=== PATIENT | female | born 1940 | race Caucasian/White ===

== ENCOUNTER → 2016-03-22 | Outpatient (CLI) | payer MEDICARE, OTHER | LOC: YCFC.O 10:52 | PROVIDERS: ATTEND Nurse Practitioner Family | DX: R30.0 Dysuria (principal); R30.9 Painful micturition, unspecified ==

== ENCOUNTER 2016-04-15 10:17 | Emergency (ER) | payer MEDICARE, OTHER ==
[2016-04-15 10:32] VITALS: BP 159/78; O2SAT 99
--- NOTE | 2016-04-15 10:50 | ED.PDOC ---
History of Present Illness - General Chief Complaint: Upper Extremity Injury Stated Complaint: right hand and wrist pain Time Seen by Provider: 04/15/16 10:47 Source: patient Exam Limitations: no limitations - History of Present Illness Initial Comments: Ms. Buffy Butt 75 y/o female stated she lifted her crock pot this am and felt something pop on her right thumb and getting achy,as well as pain on movement of her thumb. Occurred: this morning Pain - Upper Extremity: moderate: Hand, left Method of Injury: other - pulled thumb right Improving Factors: rest Worsening Factors: movement Allergies/Adverse Reactions: Allergies NO KNOWN ALLERGY Allergy (Unverified 04/23/12 11:00) Home Medications: Ambulatory Orders Dabigatran Etexilate Mesylate [Pradaxa] 150 mg PO BID 05/13/12 Lisinopril [Prinivil] 20 mg PO DAILY 05/13/12 Propafenone [Rythmol] 150 mg PO BID 05/13/12 Clonazepam 0.5 mg PO TID 04/15/16 Diltiazem HCl Coated Beads [Cartia Xt] 180 mg PO DAILY 04/15/16 Tramadol HCl [Ultram] 50 mg PO PRN 04/15/16 Review of Systems - Review of Systems Constitutional: States: no symptoms reported EENTM: States: no symptoms reported Respiratory: States: no symptoms reported Cardiology: States: no symptoms reported Gastrointestinal/Abdominal: States: no symptoms reported Genitourinary: States: no symptoms reported Musculoskeletal: States: joint pain - right tumb Skin: States: no symptoms reported Neurological: States: no symptoms reported Endocrine: States: no symptoms reported Hematologic/Lymphatic: States: no symptoms reported Past Medical History (General) - Patient Medical History Hx Seizures: No Hx Stroke: Yes - 1 week ago Hx Asthma: No Hx of COPD: No Hx Cardiac Disorders: Yes - a fib Hx Congestive Heart Failure: No Hx Pacemaker: Yes Hx Hypertension: Yes Hx Diabetes: No Hx Cancer: Yes - Colon Hx MRSA: No Hx Other PMH: Yes - Rheumatoid arthritis Surgical History: pacemaker, other - colon,hysterectomy - Vaccination History Hx Influenza Vaccination: No Hx Pneumococcal Vaccination: Yes - Social History Hx Tobacco Use: No Hx Alcohol Use: No Hx Substance Use: No Hx Physical Abuse: No Hx Emotional Abuse: No - Activities of Daily Living Patient Lives Alone: No - family Grooming Ability: Independent Eating (Feeding) Ability: Independent Toileting Ability: Independent Family Medical History - Family History Mother Family History: Unknown Hx Family Hypertension: Yes Hx Cardiac Disease: Yes Hx Family Cancer: Yes - pancreas,lung Physical Exam - Physical Exam General Appearance: Alert, Comfortable, No apparent distress Eyes, Ears, Nose, Throat Exam: PERRL/EOMI, normal ENT inspection, TMs normal Neck: non-tender, full range of motion, supple, normal inspection Cardiovascular/Respiratory: regular rate, rhythm, no M/R/G, normal peripheral pulses, no JVD, normal breath sounds, no respiratory distress Abdominal Exam: non-tender, no organomegaly, no hernia Back Exam: normal inspection, no CVA tenderness, no vertebral tenderness Shoulder Exam: normal inspection, non-tender, no evidence of injury Elbow/Forearm Exam: normal inspection, non-tender, no evidence of injury Wrist Exam: normal inspection, non-tender, no evidence of injury Hand Exam: no evidence of injury, bone tenderness - right thumb, deformity - from RA ip joints both hands, limited ROM - right mcp joint thumb Progress - EKG/XRAY/CT XRAY: hand - right hand no fracture Departure - Departure Clinical Impression: Sprain of right thumb Qualifiers: Encounter type: initial encounter Qualifier Code: (S63.601A) Unspecified sprain of right thumb, initial encounter Time of Disposition: 11:26 Disposition: Discharge to Home or Self Care Condition: Good Departure Forms: ED Discharge - Pt. Copy, Patient Portal Self Enrollment Instructions: DI for Finger Sprain Referrals: [Primary Care Provider] - 1-2 Weeks Home Medications: Ambulatory Orders Dabigatran Etexilate Mesylate [Pradaxa] 150 mg PO BID 05/13/12 Lisinopril [Prinivil] 20 mg PO DAILY 05/13/12 Propafenone [Rythmol] 150 mg PO BID 05/13/12 Clonazepam 0.5 mg PO TID 04/15/16 Diltiazem HCl Coated Beads [Cartia Xt] 180 mg PO DAILY 04/15/16 Tramadol HCl [Ultram] 50 mg PO PRN 04/15/16 Additional Instructions: FOLLOW UP WITH PRIMARY MD IN ONE WEEK
--- NOTE | 2016-04-15 11:18 | RAD ---
EXAM DESCRIPTION: Hand,Right 3 Views CLINICAL HISTORY: 75 yearsFemale, pain COMPARISON: None. IMPRESSION: Osteopenia noted. Degenerative change of base of thumb and within the DIP joints. This is most pronounced within the second digit. No fracture noted on today's study. 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 Electronically signed by: Blayne Fleming MD 04/15/2016 11:17 AM [facility]
[2016-04-15 11:53] VITALS: TEMP 98.1
== END 2016-04-15 11:31 | disposition home or self-care (01) ==
LOC: ER 10:17
DX: S63.601A Unspecified sprain of right thumb, initial encounter (principal); I48.91 Unspecified atrial fibrillation; M06.9 Rheumatoid arthritis, unspecified; I10 Essential (primary) hypertension; Z85.038 Personal history of other malignant neoplasm of large intestine; Z86.73 Personal history of transient ischemic attack (TIA), and cerebral infarction without residual deficits; Z79.899 Other long term (current) drug therapy; Z95.0 Presence of cardiac pacemaker; X50.9XXA Other and unspecified overexertion or strenuous movements or postures, initial encounter

== ENCOUNTER → 2016-09-30 | Outpatient (CLI) | payer MEDICARE, OTHER | END | disposition home or self-care (01) | LOC: YCFC.O 14:02 | PROVIDERS: ATTEND Nurse Practitioner Family | DX: R30.0 Dysuria (principal) ==

== ENCOUNTER → 2016-11-23 | Outpatient (CLI) | payer MEDICARE, OTHER | END | disposition home or self-care (01) | LOC: LAB.O 12:47 | PROVIDERS: ATTEND Internal Medicine Cardiovascular Disease | DX: I48.91 Unspecified atrial fibrillation (principal) ==

== ENCOUNTER → 2017-03-08 | Outpatient (CLI) | payer MEDICARE, OTHER | END | disposition home or self-care (01) | LOC: LAB.O 10:38 | PROVIDERS: ATTEND Internal Medicine Cardiovascular Disease | DX: I25.10 Atherosclerotic heart disease of native coronary artery without angina pectoris (principal) ==

== ENCOUNTER → 2017-08-10 | Outpatient (CLI) | payer MEDICARE, OTHER | LOC: LAB.O 07:59 | PROVIDERS: ATTEND Internal Medicine Cardiovascular Disease | DX: E78.5 Hyperlipidemia, unspecified (principal) ==

== ENCOUNTER 2017-12-31 11:33 | Emergency (ER) | payer MEDICARE, OTHER ==
[2017-12-31] MEDS ORDERED: MORPHINE SULFATE INJ 10 MG/ML VIAL IV ONE (11:47)
[2017-12-31] MEDS ORDERED: PROMETHAZINE HCL INJ 12.5 MG in SODIUM CHLORIDE 0.9% 50ML 50 ML IVPB ONE (11:48)
[2017-12-31] MEDS ORDERED: PROMETHAZINE HCL INJ 25 MG/ML VIAL ONE (11:52)
[2017-12-31] MEDS ORDERED: SODIUM CHLORIDE 0.9% 50ML 50 ML ONE (11:52)
--- NOTE | 2017-12-31 11:52 | ED.PDOC ---
History of Present Illness - General Chief Complaint: Trauma Stated Complaint: S/P fall,right arm pain Time Seen by Provider: 12/31/17 11:46 Source: patient Exam Limitations: no limitations - History of Present Illness Initial Comments: Pt tripped and fell onto R arm. Has pain in elbow and wrist. Denies other injuries Timing/Duration: 1/2 hour Severity: severe Improving Factors: immobilization Worsening Factors: movement Associated Symptoms: denies symptoms Allergies/Adverse Reactions: Allergies NO KNOWN ALLERGY Allergy (Unverified 04/23/12 11:00) Home Medications: Ambulatory Orders Dabigatran Etexilate Mesylate [Pradaxa] 150 mg PO BID 05/13/12 Lisinopril [Prinivil] 20 mg PO DAILY 05/13/12 Propafenone [Rythmol] 150 mg PO TID 05/13/12 Clonazepam 0.5 mg PO TID 04/15/16 Diltiazem HCl Coated Beads [Cartia Xt] 120 mg PO DAILY 04/15/16 Tramadol HCl [Ultram] 50 mg PO PRN 04/15/16 Furosemide [Lasix] 20 mg PO DAILY 12/31/17 Metoprolol Tartrate 25 mg PO BID 12/31/17 Potassium Chloride [Micro-K] 10 meq PO DAILY 12/31/17 Tramadol HCl 50 mg PO Q4HR PRN #20 tab 12/31/17 Review of Systems - Review of Systems Constitutional: States: no symptoms reported EENTM: States: no symptoms reported Respiratory: States: no symptoms reported Cardiology: States: no symptoms reported Gastrointestinal/Abdominal: States: no symptoms reported Musculoskeletal: States: joint pain, joint swelling - To R elbow Skin: States: no symptoms reported Neurological: States: no symptoms reported Endocrine: States: no symptoms reported Past Medical History (General) - Patient Medical History Hx Seizures: No Hx Stroke: Yes - 1 week ago Hx Asthma: No Hx of COPD: No Hx Cardiac Disorders: Yes - a fib Hx Congestive Heart Failure: No Hx Pacemaker: Yes Hx Hypertension: Yes Hx Diabetes: No Hx Cancer: Yes - Colon Hx MRSA: No - Vaccination History Hx Influenza Vaccination: No Hx Pneumococcal Vaccination: Yes - Social History Hx Tobacco Use: No Hx Alcohol Use: No Hx Substance Use: No Hx Physical Abuse: No Hx Emotional Abuse: No Family Medical History - Family History Mother Family History: Unknown Hx Family Hypertension: Yes Hx Cardiac Disease: Yes Hx Family Cancer: Yes - pancreas,lung Physical Exam - Physical Exam General Appearance: Obvious distress Eye Exam: bilateral normal Ears, Nose, Throat: hearing grossly normal Extremity: other - Deformity at R elbow with decreased ROM, no skin wounds. R wrist mildly tender without swelling or deformity. Hand is negative Neurologic: alert, normal mood/affect, oriented x 3 Skin Exam: normal color, warm/dry Procedures - Splinting Right Arm Hand-Made Type: orthoglass Splint: posterior long arm Pre-Proc Neuro Vasc Exam: normal Post-Proc Neuro Vasc Exam: normal - Joint Reduction elbow Reduction Attempts: 1 - 50 mg Propofol iv with light sedation Pre-Procedure NV Exam: Yes - normal Post Joint Reduction Film: joint reduced - fx radial head still displaced Departure - Departure Clinical Impression: Elbow dislocation Qualifiers: Encounter type: initial encounter Laterality: right Qualified Code(s): S53.104A - Unspecified dislocation of right ulnohumeral joint, initial encounter Fracture, radius, head Qualifiers: Encounter type: initial encounter Fracture type: closed Fracture alignment: displaced Laterality: right Qualified Code(s): S52.121A - Displaced fracture of head of right radius, initial encounter for closed fracture Disposition: Discharge to Home or Self Care Departure Forms: ED Discharge - Pt. Copy, Patient Portal Self Enrollment Instructions: DI for Trauma Referrals: Devon Peterson MD [Active Staff] - 1-2 Weeks Prescriptions: Tramadol HCl 50 mg PO Q4HR PRN #20 tab PRN Reason: Moderate To Severe Pain Home Medications: Ambulatory Orders Dabigatran Etexilate Mesylate [Pradaxa] 150 mg PO BID 05/13/12 Lisinopril [Prinivil] 20 mg PO DAILY 05/13/12 Propafenone [Rythmol] 150 mg PO TID 05/13/12 Clonazepam 0.5 mg PO TID 04/15/16 Diltiazem HCl Coated Beads [Cartia Xt] 120 mg PO DAILY 04/15/16 Tramadol HCl [Ultram] 50 mg PO PRN 04/15/16 Furosemide [Lasix] 20 mg PO DAILY 12/31/17 Metoprolol Tartrate 25 mg PO BID 12/31/17 Potassium Chloride [Micro-K] 10 meq PO DAILY 12/31/17 Tramadol HCl 50 mg PO Q4HR PRN #20 tab 12/31/17
--- NOTE | 2017-12-31 12:27 | RAD ---
EXAM DESCRIPTION: Elbow,Right 2 Views CLINICAL HISTORY: 77 years Female, fall COMPARISON: None. FINDINGS: Two views of the right elbow show posterior dislocation of the right elbow joint. There is a right radial head fracture with significant displacement. The radiocapitellar joint is suboptimally visualized and may also be dislocated. No distal humeral or proximal ulnar fracture is identified. A right elbow hemarthrosis is present. IMPRESSION: Right elbow fracture/dislocation as detailed above. If relevant, CT could be performed for more detailed evaluation. Electronically signed by: Gunner Patricio MD 12/31/2017 12:25 PM [facility]
--- NOTE | 2017-12-31 12:28 | RAD ---
EXAM DESCRIPTION: Wrist,Right 2 Views CLINICAL HISTORY: 77 years Female, fall COMPARISON: None. FINDINGS: Two views of the right wrist show no acute fracture or malalignment. Chondrocalcinosis involves the triangular fibrocartilage complex. There are advanced degenerative changes involving the first CMC joint. No radiopaque foreign body or soft tissue gas. IMPRESSION: Degenerative changes without acute right wrist abnormality. Electronically signed by: Gunner Patricio MD 12/31/2017 12:26 PM [facility]
[2017-12-31] MEDS ORDERED: PROPOFOL 200 MG/20 ML VIAL IV ONE (12:32)
[2017-12-31] MEDS ORDERED: SODIUM CHLORIDE 0.9% 1000ML 1,000 ML ONE (12:33)
[2017-12-31] MEDS ORDERED: SODIUM CHLORIDE 0.9% 1000ML 1,000 ML IVS ONE (12:34)
[2017-12-31 12:42] VITALS: O2SAT 96
--- NOTE | 2017-12-31 13:52 | RAD ---
PROCEDURE: XR Right Elbow Complete, 3 Views CLINICAL INDICATION: The patient is 77 years old and is Female; post reduction TECHNIQUE: Frontal, lateral and oblique views of the right elbow. COMPARISON: Prior study from earlier today. FINDINGS: BONES/JOINTS: Previously identified complete posterior dislocation has been reduced. More clearly evident is a displaced mildly comminuted radial head fracture. There is an elbow effusion. Coronoid process is intact. Olecranon is intact. SOFT TISSUES: Unremarkable.No radiopaque foreign body. No significant soft tissue swelling noted. IMPRESSION: 1. Previously identified complete posterior dislocation has been reduced. 2. More clearly evident is a displaced mildly comminuted radial head fracture. Intact coronoid process and olecranon process. 3. There is an elbow effusion. This may be a hemarthrosis. Electronically signed by: Oscar Bishop MD 12/31/2017 1:51 PM [facility]
[2017-12-31 14:49] VITALS: BP 135/54; TEMP 97.2
== END 2017-12-31 14:19 | disposition home or self-care (01) ==
LOC: ER 11:33
DX: S53.104A Unspecified dislocation of right ulnohumeral joint, initial encounter (principal); M25.531 Pain in right wrist; I48.91 Unspecified atrial fibrillation; I10 Essential (primary) hypertension; Z95.0 Presence of cardiac pacemaker; Z86.73 Personal history of transient ischemic attack (TIA), and cerebral infarction without residual deficits; Z85.038 Personal history of other malignant neoplasm of large intestine; W01.0XXA Fall on same level from slipping, tripping and stumbling without subsequent striking against object, initial encounter; Y92.9 Unspecified place or not applicable; Z79.899 Other long term (current) drug therapy
CPT/HCPCS: 73070; 73100; 94770; A4216; J2270; J2550; J3490; J7030

== ENCOUNTER → 2018-01-04 | Outpatient (CLI) | payer MEDICARE, OTHER ==
--- NOTE | 2018-01-08 13:39 | CT ---
CT right elbow without contrast INDICATION: Radial head fracture status post dislocation TECHNIQUE: Helical CT images through the right elbow without contrast with multiplanar reformats This exam was performed according to our departmental dose-optimization program, which includes automated exposure control, adjustment of the mA and/or kV according to patient size and/or use of iterative reconstruction technique. FINDINGS: The images are not laterality labeled. However, this appears to be the right side. There is an impacted displaced comminuted fracture of the radial head. An anterior fragment is displaced distally. Multiple peripheral impacted fragments are also noted. There is a large displaced fragment posterior to the capitellum which appears to be a majority of the articular surface. This fragment measures up to nearly 2 cm in diameter. Minimal background osteoarthrosis of the elbow. Moderate elbow effusion/hemarthrosis. Mild diastasis of the ulnar side of the joint. IMPRESSION: Large displaced articular surface fragment from the radial head located posterior to the capitellum with additional smaller impacted fragments distally along the proximal radius Reduced dislocation otherwise Prominent ecchymosis along the olecranon and proximal ulna and moderate elbow effusion/hemarthrosis Electronically signed by: Kumar Smith MD 01/08/2018 1:38 PM [facility]
== END ==
LOC: CT 08:35
PROVIDERS: ATTEND Orthopaedic Surgery
DX: S52.121A Displaced fracture of head of right radius, initial encounter for closed fracture (principal)

== ENCOUNTER 2018-01-24 08:34 | Observation (INO) | payer MEDICARE, OTHER ==
[2018-01-24] MEDS ORDERED: MORPHINE SULFATE INJ 10 MG/ML VIAL IM ONE ×2 (08:50→10:00)
--- NOTE | 2018-01-24 09:07 | RAD ---
EXAM DESCRIPTION: Humerus,Left CLINICAL HISTORY: 77 years Female, LUE PAIN, SWELLING COMPARISON: None. TECHNIQUE: 1 views of the left humerus were obtained. FINDINGS: The visualized bones appear osteopenic. There is an oblique fracture through the distal shaft of the humerus with medial displacement of the distal fracture fragment. Associated soft tissue swelling is noted. IMPRESSION: Oblique fracture of the distal shaft the humerus with medial displacement of the distal fracture fragment. Electronically signed by: Daria Valladares MD 01/24/2018 9:05 AM [facility]
--- NOTE | 2018-01-24 09:13 | ED.PDOC ---
History of Present Illness - General Chief Complaint: Upper Extremity Injury Stated Complaint: L arm pain Time Seen by Provider: 01/24/18 08:48 Source: patient Exam Limitations: no limitations - History of Present Illness Initial Comments: PT PRESENTS TO THE ED WITH COMPLAINT OF LEFT ARM PAIN. PT STATES THAT SHE WAS POURING COFFEE WHEN SHE FELT LIKE THE COFFEE POT HANDLE BROKE AND HIT HER ARM. PT REPORTS THAT SHE HAS BEEN USING HER ARM ALOT MORE RECENTLY SINCE SHE HAD SURGERY ON HER RIGHT ARM AND STATES THAT IT BEGAN TO HURT LAST NIGHT. Occurred: just prior to arrival Pain - Upper Extremity: severe: Upper arm, left Method of Injury: direct blow Improving Factors: immobilization Worsening Factors: movement Allergies/Adverse Reactions: Allergies NO KNOWN ALLERGY Allergy (Unverified 01/24/18 08:58) Home Medications: Ambulatory Orders Dabigatran Etexilate Mesylate [Pradaxa] 150 mg PO BID 05/13/12 Lisinopril [Prinivil] 20 mg PO DAILY 05/13/12 Propafenone [Rythmol] 150 mg PO TID 05/13/12 Clonazepam 0.5 mg PO TID 04/15/16 Diltiazem HCl Coated Beads [Cartia Xt] 120 mg PO DAILY 04/15/16 Tramadol HCl [Ultram] 50 mg PO PRN 04/15/16 Furosemide [Lasix] 20 mg PO DAILY 12/31/17 Metoprolol Tartrate 25 mg PO BID 12/31/17 Potassium Chloride [Micro-K] 10 meq PO DAILY 12/31/17 Tramadol HCl 50 mg PO Q4HR PRN #20 tab 12/31/17 Review of Systems - Review of Systems Constitutional: Denies: chills, fever Respiratory: Denies: cough, short of breath Cardiology: Denies: chest pain, palpitations Gastrointestinal/Abdominal: Denies: nausea, vomiting Musculoskeletal: Denies: back pain, muscle pain Skin: Denies: dryness, lesions Neurological: Denies: headache, numbness Past Medical History (General) - Patient Medical History Hx Seizures: No Hx Stroke: Yes - 1 week ago Hx Asthma: No Hx of COPD: No Hx Cardiac Disorders: Yes - a fib Hx Congestive Heart Failure: No Hx Pacemaker: Yes Hx Hypertension: Yes Hx Diabetes: No Hx Cancer: Yes - Colon Hx MRSA: No - Vaccination History Hx Influenza Vaccination: No Hx Pneumococcal Vaccination: Yes - Social History Hx Tobacco Use: No Hx Alcohol Use: No Hx Substance Use: No Hx Physical Abuse: No Hx Emotional Abuse: No Family Medical History - Family History Mother Family History: Unknown Hx Family Hypertension: Yes Hx Cardiac Disease: Yes Hx Family Cancer: Yes - pancreas,lung Physical Exam - Physical Exam General Appearance: Alert, Obvious distress, Well Developed, Well Groomed, Well Hydrated Eyes, Ears, Nose, Throat Exam: normal ENT inspection Neck: normal inspection Back Exam: normal inspection Shoulder Exam: normal inspection, non-tender, no evidence of injury, swelling - AND TENDERNESS TO PALPATION OF THE LEFT DISTAL HUMERUS REGION. LIMITED RANGE OF MOTION DUE TO PAIN. Elbow/Forearm Exam: normal inspection, non-tender, no evidence of injury Wrist Exam: normal inspection, non-tender, no evidence of injury Hand Exam: normal inspection, non-tender, no evidence of injury Mental Status: alert, oriented x 3 Skin Exam: normal color, warm/dry Progress - Progress Progress: 01/24/18 0900 XRAY FINDINGS DISCUSSED. DAUGHTER FEELS THOUGH SHE WILL BE ABLE TO CARE FOR HER AT HOME. 01/24/18 10:38 SPLINT PLACED BY NURSING STAFF. GOOD SENSATION AND COLOR DISTALLY AFTER SPLINT PLACEMENT. DAUGHTER NO LONGER FEELS LIKE SHE WILL BE ABLE TO CARE FOR HER AT HOME DUE TO PTS PAIN LEVEL. REQUESTING ADMISSION FOR PAIN CONTROL. - EKG/XRAY/CT XRAY: HUMERUS: DISPLACED FX OF DISTAL HUMERUS - Consult/PCP Time Called: 09:25 - CASE DISCUSSED, RECOMMENDS POSTERIOR SPLINT, OUTPT FOLLOWUP Consult/PCP: DR. LUO - Additional EKG/XRAY/Consults Time Called: 11:25 Consult/PCP: DR. LUO Reason/Comments: RECOMMENDS ADMISSION HERE FOR PAIN CONTROL Departure - Departure Clinical Impression: Humerus distal fracture, Intractable pain Time of Disposition: 10:39 Disposition: Admit Patient Condition: Fair Departure Forms: ED Discharge - Pt. Copy, Patient Portal Self Enrollment Instructions: DI for Humeral Fracture Diet: resume usual diet Home Medications: Ambulatory Orders Dabigatran Etexilate Mesylate [Pradaxa] 150 mg PO BID 05/13/12 Lisinopril [Prinivil] 20 mg PO DAILY 05/13/12 Propafenone [Rythmol] 150 mg PO TID 05/13/12 Clonazepam 0.5 mg PO TID 04/15/16 Diltiazem HCl Coated Beads [Cartia Xt] 120 mg PO DAILY 04/15/16 Tramadol HCl [Ultram] 50 mg PO PRN 04/15/16 Furosemide [Lasix] 20 mg PO DAILY 12/31/17 Metoprolol Tartrate 25 mg PO BID 12/31/17 Potassium Chloride [Micro-K] 10 meq PO DAILY 12/31/17 Tramadol HCl 50 mg PO Q4HR PRN #20 tab 12/31/17 Additional Instructions: FOLLOW UP WITH DR. LUO. CALL OFFICE FOR APPOINTMENT Decision To Admit - Decistion To Admit Decision to Admit Reason: Admit from ER Decision to Admit Date: 01/24/18 Decision to Admit Time: 11:58 - CASE DISCUSSED WITH [place] RAMIRES NP WHO AGREES TO ADMIT
--- NOTE | 2018-01-24 10:09 | CT ---
EXAM DESCRIPTION: Upper Extremity CLINICAL HISTORY: 77 years Female, LUE FX, R/O PATHOLOGIC FX COMPARISON: Radiograph performed on the same day. TECHNIQUE: Contiguous axial images through the left humerus were obtained without intravenous contrast administration. Sagittal, coronal and 3-D reconstructions were reviewed. This exam was performed according to our departmental dose-optimization program, which includes automated exposure control, adjustment of the mA and/or kV according to patient size and/or use of iterative reconstruction technique. FINDINGS: Again identified is a slightly comminuted obliquely oriented fracture of the distal shaft of the humerus. There is lateral angulation of the proximal fracture fragment and medial displacement of the distal fracture fragment. Approximately 2 cm overriding of the fracture fragments is noted. No definite lytic or blastic lesion is identified. No evidence of cortical erosion or disruption or soft tissue mass, to suggest underlying malignancy. There is surrounding soft tissue swelling and hemorrhage. Remainder of the visualized bones appear normal. IMPRESSION: Slightly comminuted, obliquely oriented fracture of the distal shaft of the humerus with approximately 2 cm overriding of the fracture fragments. No evidence of lytic or blastic lesion. Electronically signed by: Daria Valladares MD 01/24/2018 10:08 AM [facility]
[2018-01-24] MEDS ORDERED: SODIUM CHLORIDE 0.9% (FLUSH) 10 ML SYG IV PRN (11:23)
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
[2018-01-24] MEDS ORDERED: IV SET AND CAP CHANGE INJ INJ SCH (12:30)
[2018-01-24] MEDS: MORPHINE SULFATE INJ 10 MG/ML VIAL IV PRN ×5 (12:51→22:12)
[2018-01-24] MEDS ORDERED: ONDANSETRON 4 MG TAB PO PRN (13:39)
--- NOTE | 2018-01-24 16:45 | RAD ---
EXAM DESCRIPTION: Humerus,Left CLINICAL HISTORY: 77 years Female, sudden pain COMPARISON: Earlier same day FINDINGS: Left humerus 2 views Oblique fracture through the distal humeral diaphysis with increased displacement/angulation compared to prior. Soft tissue swelling. Electronically signed by: Ryan Bond MD 01/24/2018 4:43 PM [facility]
[2018-01-24] MEDS ORDERED: OMEPRAZOLE CAP 20 MG CAP ONE (19:58)
[2018-01-24] MEDS: DABIGATRAN ETEXILATE 75 MG CAP PO SCH (20:40)
[2018-01-24] MEDS: PROPAFENONE 150 MG TAB PO SCH (20:40)
[2018-01-24] MEDS: SODIUM CHLORIDE 0.9% (FLUSH) 10 ML SYG IV PRN (20:41)
[2018-01-25] MEDS: MORPHINE SULFATE INJ 10 MG/ML VIAL IV PRN ×4 (01:06→12:52)
[2018-01-25] MEDS: OMEPRAZOLE CAP 20 MG CAP PO SCH (06:06)
[2018-01-25] MEDS ORDERED: cefTRIAXone SODIUM 1 GM VIAL ONE ×2 (07:26→20:10)
[2018-01-25] MEDS ORDERED: SODIUM CHL 0.9% 50ML MIN-BAG+ 50 ML IVPB ONE ×2 (07:27→20:10)
[2018-01-25] MEDS ORDERED: SODIUM CHLORIDE 0.9% 50ML 0 ML ONE (07:27)
[2018-01-25] MEDS: cefTRIAXone SODIUM 1 GM in SODIUM CHL 0.9% 50ML MIN-BAG+ 50 ML IVPB SCH (07:39)
[2018-01-25] MEDS: SODIUM CHLORIDE 0.9% (FLUSH) 10 ML SYG IV PRN ×2 (07:41→20:34)
[2018-01-25] MEDS: PROPAFENONE 150 MG TAB PO SCH ×2 (08:57→20:34)
[2018-01-25] MEDS: LISINOPRIL 10 MG TAB PO SCH (08:57)
[2018-01-25] MEDS: diltiaZEM HCL CD 180 MG CAP PO SCH (08:57)
[2018-01-25] MEDS ORDERED: HYDROcodone 5MG/APAP 325MG 1 EA TAB PO PRN (09:30)
[2018-01-25] MEDS ORDERED: HYDROcodone 5MG/APAP 325MG 1 EA TAB ONE (09:36)
[2018-01-25] MEDS: DABIGATRAN ETEXILATE 75 MG CAP PO SCH ×2 (09:38→20:34)
[2018-01-25] MEDS: ACETAMINOPHEN W/COD #3 TAB 1 EA TAB PO PRN ×3 (10:12→18:59)
--- NOTE | 2018-01-25 16:22 | PN ---
DATE: 01/25/18 SUPERVISING PHYSICIAN: Hitesh Fishman M.D. SUBJECTIVE: The patient is still requiring IV pain medicine in the form of morphine, but she is working to hopefully be able to transition to p.o. medication today. She is at a significant disadvantage given that she has 2 fractured arms now. I discussed with her that we would get Physical Therapy to work with her and see how she could do at least going from the bed to a chair and the bed to chair, toilet in efforts to get her home as soon as possible with anticipation of hopefully tomorrow. She has been afebrile. She remains alert. OBJECTIVE: VITAL SIGNS: Temperature 98.4, pulse 79, blood pressure 133/77, respirations 17, satting 96% on room air. I's and O's show a negative balance of 780 with 420 in, 1200 out. Weight is 88.2 kg. CHEST: Lungs were clear to auscultation. HEART: Regular rate and rhythm. ABDOMEN: Obese but soft, non- tender. Positive bowel sounds. EXTREMITIES: Both upper extremities are in splints with both having intact sensation. SKIN: [place] with good capillary refill. Lower extremities are without any clubbing, cyanosis or edema. NEUROLOGIC: She is alert and oriented times three. LABORATORY: No laboratory were repeated today or radiology. ASSESSMENT: 1. Acute left arm fracture status post same level fall with splint being placed in the Emergency Room with the patient continuing to have requirement for more aggressive pain management. 2. Acute pain secondary to #1 requiring IV and oral medication. 3. History of hypertension and congestive heart failure with the patient showing to be without any exacerbation and controlled blood pressure. PLAN: Will continue with pain management with stair stepping her off morphine onto the Tramadol or Tylenol #3. She is unable to tolerate [place] and Fentanyl. The plan again is to have surgical intervention next week in [facility] with her orthopedist. Will get a physical therapy evaluation today to help reassure the patient that she can function at home and encourage her to ask for pain management and utilize p.o. medications as possible with anticipation of discharging tomorrow. Until she can transition back to outpatient management will continue to monitor and treat as needed. #[id number] [facility]
[2018-01-26] MEDS: MORPHINE SULFATE INJ 10 MG/ML VIAL IV PRN ×2 (00:29→07:48)
[2018-01-26] MEDS: ACETAMINOPHEN W/COD #3 TAB 1 EA TAB PO PRN ×4 (00:57→14:00)
[2018-01-26] MEDS ORDERED: MORPHINE SULFATE INJ 10 MG/ML VIAL IV ONE (01:17)
[2018-01-26] MEDS: OMEPRAZOLE CAP 20 MG CAP PO SCH (06:10)
[2018-01-26] MEDS: cefTRIAXone SODIUM 1 GM in SODIUM CHL 0.9% 50ML MIN-BAG+ 50 ML IVPB SCH (06:34)
[2018-01-26] MEDS: PROPAFENONE 150 MG TAB PO SCH (08:34)
[2018-01-26] MEDS: LISINOPRIL 10 MG TAB PO SCH (08:34)
[2018-01-26] MEDS: diltiaZEM HCL CD 180 MG CAP PO SCH (08:38)
[2018-01-26 10:03] VITALS: O2SAT 98
[2018-01-26] MEDS: DABIGATRAN ETEXILATE 75 MG CAP PO SCH (10:23)
[2018-01-26 14:04] VITALS: BP 137/80; TEMP 98.8
--- NOTE | 2018-01-30 09:26 | DS ---
SUPERVISING PHYSICIAN: Bi Fishman MD ADMISSION DIAGNOSIS: 1. Acute left arm fracture status post splinting in the Emergency Room. 2. Acute pain secondary to #1. 3. History of hypertension, congestive heart failure. There is no acute exacerbation of the congestive heart failure at this time. DISCHARGE DIAGNOSIS: 1. Acute left humerus fracture status post same level fall, requiring surgical correction to be completed after discharge with the patient showing no complications. 2. Acute pain secondary to #1, requiring IV pain management and able to transition to oral medications at discharge. 3. History of hypertension and congestive heart failure without any signs of exacerbation. 4. Urinary tract infection, asymptomatic with the patient being treated with antibiotics with final culture results showing pseudomonas aeruginosa that was fairly resistant, but sensitive to ciprofloxacin. REASON FOR HOSPITALIZATION: This is a 77-year-old female who came to the hospital with left arm pain. Apparently she was pouring coffee this morning. The handle broke and she hit her arm. She has been using the arm a lot more recently because she had surgery on her right arm. The right arm has an ulnar fracture and tendon disruption which was surgically repaired recently. She has been at home and her daughter has been taking care of her. Her workup in the Emergency Room included x-ray and the x-ray showed a displaced fracture of the distal humerus. She underwent a CT scan to rule out pathologic fracture, but that was negative for any evidence of pathology. Due to the pain and the fact that she cannot use her other arm, she was referred for pain control with an end plan of going home on p.o. medications in addition to surgical intervention by her orthopedic surgeon, Dr. Manuel in [place]. LABORATORY: White count on admission was 11,600, hemoglobin 12.3, hematocrit 37.2, platelet count 387,000. Differential did show a left shift. Chemistries showed a sodium of 132, potassium 4.8, BUN 15, creatinine 0.53, calcium 8.7. Urinalysis showed a moderate amount of blood, positive nitrites with 50 of ketones, trace leukocyte esterase, 40 to 50 RBCs, 5 to 10 WBCs, 0 epithelials, 2+ bacteria. RADIOLOGY: She had multiple humerus x-rays which was followed up with CT of the upper extremity showing a slightly comminuted obliquely oriented fracture of the distal shaft of the humerus, approximately 2 cm overriding of the distal fragments with no lytic or blastic lesions. This was followed up with a humerus x-ray after placement of a splint showing oblique fracture through the distal humeral diaphysis with increased displacement/angulation compared to prior. Soft tissue swelling. Please see those reports for full details. HOSPITAL COURSE: Ms. Butt was admitted through the Emergency Room after she sustained a humerus fracture of the left arm. She was placed in a posterior splint prior to admission. The case was discussed with Dr. Peterson who recommended she would require surgery, but was not emergent. However, due to the patient's underlying comorbidities, she was not a candidate for surgical repair here and recommendation to see orthopedic surgeon in [place]. In discussion with her orthopedic surgeon in [place], Dr. Manuel, she was to have repair Tuesday after discharge. She had no clinical complications. She had good neurosensory assessments. Her pain was able to be managed with oral medication with Tylenol #3 as she was showing adverse reaction per her note to fentanyl and hydrocodone. She did require several doses of IV morphine for breakthrough pain, however, was able to control prior to discharge. Several attempts were made to get the patient transferred to an inpatient rehab facility, however, due to her insurance, was denied on all cases, but was stable enough to discharge to continue with further management as described above. She was also started on Rocephin for her underlying urinary tract infection and transitioned to ciprofloxacin after culture results were completed. PLAN: Ms. Butt was discharged to continue with followup with Dr. Manuel, her orthopedic surgeon, the Tuesday after discharge in [place]. She was to resume her home medications as previously instructed and told to return to the hospital if any concerning symptoms. DIET AT DISCHARGE: As tolerated. ACTIVITY: No lifting or pulling with both upper extremities until seen in followup. She was told to call Dr. Manuel and request instructions on when to stop her Pradaxa prior to surgical procedure, but until then, continue with medications as prior to hospitalization. MEDICATIONS AT DISCHARGE: 1. Tylenol #3 for pain control, 1 to 2 q.4h. as needed, #60 prescribed, no refills. 2. Ciprofloxacin 500 mg twice daily, #20, no refills. All other medications prior to hospitalization were continued as is. DISPOSITION: The patient was discharged to the care of her daughters at home. CONDITION AT DISCHARGE: Stable and improved. #[id number] [facility]
== END 2018-01-26 16:45 | disposition home or self-care (01) ==
LOC: ER 08:34 → MS 12:11 → INTOOBSV 12:11
PROVIDERS: ADMIT Nurse Practitioner; ATTEND Nurse Practitioner Family
DX: S42.332A Displaced oblique fracture of shaft of humerus, left arm, initial encounter for closed fracture (principal); G89.11 Acute pain due to trauma; S52.201D Unspecified fracture of shaft of right ulna, subsequent encounter for closed fracture with routine healing; X58.XXXD Exposure to other specified factors, subsequent encounter; I11.0 Hypertensive heart disease with heart failure; I50.9 Heart failure, unspecified; E78.5 Hyperlipidemia, unspecified; I48.91 Unspecified atrial fibrillation; W22.8XXA Striking against or struck by other objects, initial encounter; Y93.89 Activity, other specified; Y92.000 Kitchen of unspecified non-institutional (private) residence as the place of occurrence of the external cause; Z79.899 Other long term (current) drug therapy; Z98.890 Other specified postprocedural states; Z95.0 Presence of cardiac pacemaker; Z85.038 Personal history of other malignant neoplasm of large intestine; Z87.891 Personal history of nicotine dependence; Z86.73 Personal history of transient ischemic attack (TIA), and cerebral infarction without residual deficits; Z82.49 Family history of ischemic heart disease and other diseases of the circulatory system
CPT/HCPCS: 29105; 96365; 96375 ×2; 96376 ×3; 96372; J0696 ×2; J2270 ×14; J7050 ×2; 80048; 87086; 36415; 87077; 87186; 81001; 85025; 73060 ×2; 73200; 97530 ×2; G8978; G8979; 97162; 99285; G0378

== ENCOUNTER → 2018-03-23 | Outpatient (CLI) | payer MEDICARE, OTHER ==
--- NOTE | 2018-03-23 15:59 | US ---
EXAM DESCRIPTION: Breast,Bilateral: Ultrasound CLINICAL HISTORY: 77 yearsFemaleHX OF COLON CANCER. 2 fractures in January 2018. Possibly pathologic. Patient's daughter says "cancer cell were found at surgery." Benign breast biopsy 20 years ago. Patient scheduled for PET CT scan tomorrow. COMPARISON: Digital diagnostic tomosynthesis bilateral breast on this visit. Right and left upper extremity fractures radiographs in December and January 2018. CT scan left upper humerus 01/24/2018. TECHNIQUE: Transcutaneous scanning of the bilateral breast utilizing cochran-scale and Doppler modes. Scanning performed by the entertainer & comic and Dr. Rogers. FINDINGS: Scanning of the right retroareolar breast. Mostly fatty tissues with scattered fibroglandular tissues. Dilated ducts are present. No vascular flow. Dilated duct versus cystic structure measuring 6.4 x 4.7 mm. Scanning of the left breast at the 6:00 position 3 cm from the nipple. Minimal skin thickening or nipple retraction was noted. Irregular mass with lobulated and spiculated margins, mostly hypoechoic measuring 2.8 x 1.4 x 1.4 cm. Central mass demonstrates taller than wide orientation. Posterior acoustic shadowing. This mass is palpable with the transducer. Dilated duct appears to extend to the nipple with a retroareolar mass measuring 2.0 x 0.7 centimeters. Also noted are hypoechoic masses with circumscribed margins, wider than tall orientation and posterior acoustic enhancement. These masses are 1.2 x 0.6 cm, and 0.6 x 0.5 cm. IMPRESSION: 1. BI-RADS CATEGORY: 5 - HIGHLY SUGGESTIVE OF MALIGNANCY. 2. Please refer to bilateral diagnostic digital breast tomosynthesis examination and report on this visit The FINDINGS and the FOLLOW-UP plan were reviewed in person with the patient after the examination. Written communication explaining the IMPRESSION and FOLLOW-UP will be mailed to the patient and referring care provider. CRITICAL COMMUNICATION: The critical value was discussed directly by phone with Dr. Buitrago at approximately 1330 hours, on March 23, 2018. Electronically signed by: Yan Rogers MD 03/23/2018 3:57 PM [facility]
--- NOTE | 2018-03-23 15:59 | MAM ---
EXAM DESCRIPTION: Diagnostic Mammo,Bilateral: Digital Mammography CLINICAL HISTORY: 77 yearsFemaleANNUAL SCREENING . No complaints. No personal or family history of breast cancer. Childbirth. 35 years postmenopausal. No HRT. Prior benign biopsies.. Lifetime risk of developing breast cancer (Tyrer-Cuzick model) percentage is 3.1. COMPARISON: Baseline study at this facility. No prior reports available.. TECHNIQUE: Bilateral CC LM MLO projection full-field images, digital mammographic tomosynthesis technique. Bilateral 2-D digital full-field MLO images. . The digital spot magnification anterior left breast CC and LM projection. CAD not utilized. FINDINGS: The breast parenchymal density pattern is: Scattered areas of fibroglandular density. No skin thickening or nipple retraction right breast. Inverted nipple but possible nipple retraction and focal skin thickening anterior left breast. Radiodense spiculated mass with irregular margins at the 530 position of the anterior third of the left breast approximately 3 cm from the nipple. Approximate dimensions are 3.1 x 2.0 x 1.7 cm with numerous heterogeneous and pleomorphic calcifications. The mass is palpable. Bilateral vascular calcifications and solitary microcalcifications. Small retroareolar density in the right breast. Pacemaker partially visualized and obscuring the superior pectoral muscle on the left breast. Ultrasound: Scanning of the right retroareolar breast. Mostly fatty tissues with scattered fibroglandular tissues. Dilated ducts are present. No vascular flow. Dilated duct versus cystic structure measuring 6.4 x 4.7 mm. Scanning of the left breast at the 6:00 position 3 cm from the nipple. Minimal skin thickening or nipple retraction was noted. Irregular mass with lobulated and spiculated margins, mostly hypoechoic measuring 2.8 x 1.4 x 1.4 cm. Central mass demonstrates taller than wide orientation. Posterior acoustic shadowing. This mass is palpable with the transducer. Dilated duct appears to extend to the nipple with a retroareolar mass measuring 2.0 x 0.7 centimeters. Also noted are hypoechoic masses with circumscribed margins, wider than tall orientation and posterior acoustic enhancement. These masses are 1.2 x 0.6 cm, and 0.6 x 0.5 cm. IMPRESSION: BI-RADS CATEGORY: 5 HIGHLY SUSPICIOUS FINDINGS. HIGHLY SUGGESTIVE OF MALIGNANCY. Recommendation: Surgical consultation. The FINDINGS and the FOLLOW-UP plan were reviewed in person with the patient after the examination. Written communication explaining the IMPRESSION and FOLLOW-UP will be mailed to the patient and referring care provider. CRITICAL COMMUNICATION: The critical value was discussed directly by phone with Dr. Buitrago at approximately 1330 hours, on March 23, 2018. Electronically signed by: Yan Rogers MD 03/23/2018 3:57 PM [facility]
== END ==
LOC: MAMMO 10:00
PROVIDERS: ATTEND Internal Medicine Hematology & Oncology
DX: N63.23 Unspecified lump in the left breast, lower outer quadrant (principal); Z85.038 Personal history of other malignant neoplasm of large intestine

== ENCOUNTER → 2018-04-11 | Outpatient (CLI) | payer MEDICARE, OTHER ==
--- NOTE | 2018-04-11 11:35 | CT ---
EXAM DESCRIPTION: Head w/wo Contrast CLINICAL HISTORY: HISTORY OF COLON CANCER COMPARISON: Previous noncontrast head CT August 02, 2015 TECHNIQUE: CT brain is performed prior to and following IV administration of routine adult dose of nonionic iodinated contrast. FINDINGS: Ventricles and sulci are prominent consistent with age-related cerebral volume loss. There is no hemorrhage or mass. Low density white matter consistent with chronic microvascular ischemic changes as seen on previous study. 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 This was seen on the previous study. The calvarium is unremarkable. The visualized paranasal sinuses and the mastoids are clear. After IV contrast, repeat axial images show normal enhancement of intracranial vessels. No pathologic brain parenchymal enhancement. No enhancing intracranial mass to suggest metastatic disease. Coronal and sagittal reformatted pre and postcontrast images confirm the findings. Comparing the bone window images of the calvarium and skull base to the previous study August 02, 2015, small indeterminate lucencies in the skull appears stable. If the patient did not have bone scan positive metastatic disease in July 2015, this would indicate that the present calvarial lucencies are unrelated to metastatic disease. On the other hand, if the patient had positive bone metastases at the time of the previous study then present findings could indicate scattered small stable calvarial metastases. Clinical correlation recommended. IMPRESSION: Negative for evidence of brain metastases. Scattered indeterminate calvarial lucencies are stable compared to the previous study. This exam was performed according to our departmental dose-optimization program, which includes automated exposure control, adjustment of the mA and/or kV according to patient size and/or use of iterative reconstruction technique. Electronically signed by: Sundar Moreno MD 04/11/2018 11:32 AM [facility]
== END ==
LOC: LAB.O 09:07
PROVIDERS: ATTEND Internal Medicine Hematology & Oncology
DX: C79.51 Secondary malignant neoplasm of bone (principal); Z85.038 Personal history of other malignant neoplasm of large intestine

== ENCOUNTER → 2018-06-01 | Outpatient (CLI) | payer MEDICARE, OTHER | LOC: LAB.O 09:59 | PROVIDERS: ATTEND Internal Medicine Cardiovascular Disease | DX: I48.0 Paroxysmal atrial fibrillation (principal) ==

== ENCOUNTER → 2018-06-13 | Outpatient (CLI) | payer MEDICARE, OTHER ==
--- NOTE | 2018-06-13 14:42 | CT ---
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 TECHNIQUE: Postcontrast CT images of the chest are obtained using pulmonary embolism imaging protocol. Three-D MIP reconstructed images of the arterial vasculature are obtained. Coronal and sagittal reconstructed images of the also provided. This exam was performed according to our departmental dose-optimization program, which includes automated exposure control, adjustment of the mA and/or kV according to patient size and/or use of iterative reconstruction technique . FINDINGS: The heart is enlarged. Mild coronary artery calcifications are seen. Left subclavian dual-lead transvenous cardiac pacemaker is seen in place. Ascending thoracic aorta at the level of the aortic valve measures 4 cm. The aorta at the level of the left coronary artery measures 4.4 cm. Mid ascending thoracic aorta measures 4.5 cm. Thoracic aortic arch measures 3.1 cm. Calcified plaque of the aortic arch proximal descending thoracic aorta is seen. The descending thoracic aorta at the level of the demond measures 2.9 cm. Tortuosity of the distal descending thoracic aorta is seen. No dissection is seen. Visualized portion of the upper abdomen shows severe calcified plaque at the origin of the superior mesenteric artery which is incompletely included in the [id number]. No definite filling defects or emboli are seen in the pulmonary arteries. No pathologically enlarged mediastinal, hilar, or axillary lymphadenopathy seen.. No pleural or pericardial effusion is seen. Visualized portion of the upper abdomen is mild nodularity of the liver capsule raising suspicion for cirrhosis. Lungs are mildly hypoaerated. No acute appearing infiltrate or consolidation is seen. Calcified pulmonary nodules in the right lung are seen consistent with old granulomatous disease. Moderate curvature of the upper thoracic spine with convexity towards the right is seen. Mild to moderate disc degenerative changes of the thoracic spine are seen. IMPRESSION: Mild aneurysmal dilatation of the ascending thoracic aorta measuring maximum 4.5 cm. No aortic dissection is seen. Mild to moderate atherosclerotic disease of the coronary arteries and thoracic aorta are seen. Calcified pulmonary nodules consistent with old granulomatous disease. Cardiomegaly with left subclavian transvenous cardiac pacemaker leads in place. Electronically signed by: Gordon Sanchez MD 06/13/2018 2:40 PM CDT
== END ==
LOC: MRI 09:02
PROVIDERS: ATTEND Internal Medicine Cardiovascular Disease
DX: I71.2 Thoracic aortic aneurysm, without rupture (principal); I25.10 Atherosclerotic heart disease of native coronary artery without angina pectoris; I70.0 Atherosclerosis of aorta; R91.8 Other nonspecific abnormal finding of lung field; I51.7 Cardiomegaly

== ENCOUNTER 2018-07-27 16:25 | Emergency (ER) | payer MEDICARE, OTHER ==
--- NOTE | 2018-07-27 17:14 | RAD ---
EXAM DESCRIPTION: Chest,1 View CLINICAL HISTORY: 78 years Female sob COMPARISON: 08/02/2015 FINDINGS: Stable cardiac enlargement. Pacemaker in place. No acute infiltrate or edema. No pleural fluid. IMPRESSION: Stable cardiac enlargement without evidence of acute process Electronically signed by: Chana Collins MD 07/27/2018 5:12 PM CDT
[2018-07-27] MEDS ORDERED: AMOXICILLIN & POT CLAVULANATE 875 MG TAB PO ONE (18:42)
--- NOTE | 2018-07-27 18:49 | ED.PDOC ---
History of Present Illness - General Chief Complaint: General Stated Complaint: Weakness, SOB Time Seen by Provider: 07/27/18 16:36 Source: patient Exam Limitations: no limitations - History of Present Illness Initial Comments: the patient is a 78-year-old female presenting to the emergency room secondary to being sent up here by her home health nurse. The patient has been having a little more shortness of breath with exertion, little more fatigue, and a little more generalized weakness. She is currently undergoing chemotherapy. No other more specific symptoms. No fever. No altered mental status. Nonew pain. Timing/Duration: other - one month Severity: mild Improving Factors: nothing Worsening Factors: nothing Associated Symptoms: shortness of breath, weakness Allergies/Adverse Reactions: Allergies Hydrocodone [From oneforty] Adverse Reaction (Verified 01/25/18 09:57) Home Medications: Ambulatory Orders Lisinopril [Prinivil] 20 mg PO BID 05/13/12 Propafenone [Rythmol] 150 mg PO DAILY 05/13/12 Tramadol HCl [Ultram] 50 mg PO QID 04/15/16 Ondansetron HCl [Ondansetron] 4 mg PO BID PRN 01/24/18 Amoxicillin & Pot Clavulanate [Augmentin Tab] 875 mg PO BID #14 tab 07/27/18 Anastrozole [Arimidex] 1 mg PO DAILY 07/27/18 Clonazepam 0.5 mg PO TID 07/27/18 Dabigatran Etexilate Mesylate [Pradaxa] 150 mg PO BID 07/27/18 Digoxin [Digox] 125 mcg PO DAILY 07/27/18 Ibrance 100 mg PO DAILY 07/27/18 Metoprolol Succinate [Metoprolol Succinate ER] 50 mg PO BID 07/27/18 Review of Systems - Review of Systems Constitutional: States: malaise, weakness EENTM: States: no symptoms reported Respiratory: States: short of breath Cardiology: States: no symptoms reported Gastrointestinal/Abdominal: States: no symptoms reported Genitourinary: States: no symptoms reported Musculoskeletal: States: no symptoms reported Skin: States: no symptoms reported Neurological: States: no symptoms reported Endocrine: States: no symptoms reported All other Systems: No Change from Baseline Past Medical History (General) - Patient Medical History Hx Seizures: No Hx Stroke: Yes - TIA 2014 Hx Asthma: No Hx of COPD: Yes Hx Cardiac Disorders: Yes - Arrhythmias, A fib, Hx MN's; AAA and thoracic aneurysm Hx Congestive Heart Failure: Yes Hx Pacemaker: Yes Hx Hypertension: Yes Hx Diabetes: No Hx Gastroesophageal Reflux: Yes Hx Cancer: Yes - Colon - treated with Colon resection Hx MRSA: No Surgical History: appendectomy, colectomy, Hysterectomy, other - Vaccination History Hx Influenza Vaccination: Yes - 2018 Hx Pneumococcal Vaccination: No - Social History Hx Tobacco Use: No Hx Alcohol Use: No Hx Substance Use: No Hx Physical Abuse: No Hx Emotional Abuse: No Family Medical History - Family History Mother Family History: Unknown Hx Family Hypertension: Yes Hx Cardiac Disease: Yes Hx Family Cancer: Yes - pancreas,lung Physical Exam - Physical Exam General Appearance: Alert, Comfortable, No apparent distress Eye Exam: bilateral normal Ears, Nose, Throat: hearing grossly normal, normal ENT inspection Neck: full range of motion, supple Respiratory: lungs clear, normal breath sounds, no respiratory distress, no accessory muscle use Cardiovascular/Chest: normal peripheral pulses, no edema, other - regular rate Peripheral Pulses: radial,right: 2+, radial,left: 2+ Gastrointestinal/Abdominal: non tender, soft Rectal Exam: deferred Back Exam: no CVA tenderness, no vertebral tenderness Extremity: normal range of motion, non-tender, normal inspection, no pedal edema, normal capillary refill Neurologic: spout tender II-XII nml as tested, alert, normal mood/affect, oriented x 3 Skin Exam: normal color Comments: Vital Signs - 24 hr 07/27/18 07/27/18 07/27/18 16:37 17:28 18:00 Temperature 96.8 F L Pulse Rate [ 61 60 60 Right Radial] Respiratory 18 18 18 Rate Blood Pressure 189/80 155/64 [Left Arm] O2 Sat by Pulse 96 96 96 Oximetry Progress - Progress Progress: 07/27/18 18:49 the patient is a 78-year-old female presenting with longer-term weakness and increased shortness of breath with exertion. Workup here has failed to show any other significant acute pathology other than a urinary tract infection. She'll be placed on Augmentin for this. She does seem to have significant deconditioning and may benefit from an aerobic exercise plan. She does have chronic pancytopenia. She does need to keep follow-up with her primary care doctor and her oncologist. Urine is being cultured. ER warnings were given. - Results/Orders Results/Orders: chest x-ray appears benign. 07/27/18 18:18 Urine Culture Stat Laboratory Results - last 24 hr 07/27/18 07/27/18 07/27/18 17:12 17:12 18:18 WBC 2.3 L* RBC 3.48 L Hgb 10.7 L Hct 31.5 L MCV 90.6 MCH 30.8 MCHC 34.0 RDW 30.1 H Plt Count 246 MPV 7.4 Absolute Neuts (auto) Not Reportable Absolute Lymphs (auto) Not Reportable Absolute Monos (auto) Not Reportable Absolute Eos (auto) Not Reportable Neutrophils % Not Reportable Neutrophils % (Manual) 41.0 L Lymphocytes % Not Reportable Lymphocytes % (Manual) 36.0 Monocytes % Not Reportable Monocytes % (Manual) 18.0 Eosinophils % Not Reportable Basophils % Not Reportable Eosinophils 4.0 Basophils 1.0 Platelet Estimate Normal Anisocytosis 2+ Sodium 140 Potassium 3.5 L Chloride 102 Carbon Dioxide 27 Anion Gap 14.5 BUN 9 Creatinine 0.75 BUN/Creatinine Ratio 12.0 Random Glucose 105 Serum Osmolality 278.4 Calcium 9.0 Magnesium 2.0 Total Bilirubin 0.6 AST 21 ALT 10 Alkaline Phosphatase 40 L Creatine Kinase 51 CK-MB (CK-2) 1.2 CK-MB (CK-2) % Not Reportable Troponin I < 0.02 B-Natriuretic Peptide 215.0 H* Serum Total Protein 7.5 Albumin 4.2 Globulin 3.3 Albumin/Globulin Ratio 1.3 TSH 1.15 Urine Color Yellow Urine Appearance Cloudy Urine pH 6.0 Ur Specific Anthony 1.025 Urine Protein 30 Urine Glucose (UA) Negative Urine Ketones Negative Urine Blood Moderate H Urine Nitrite Positive H Urine Bilirubin Negative Urine Urobilinogen 1.0 Ur Leukocyte Esterase Negative Urine RBC 5-10 H Urine WBC 5-10 H Ur Epithelial Cells 1-3 Calcium Oxalate Crystal 1+ Amorphous Sediment 1+ Urine Bacteria 4+ H Urine Mucus Moderate Departure - Departure Clinical Impression: Cystitis, Muscular deconditioning, Pancytopenia Disposition: Discharge to Home or Self Care Condition: Fair Departure Forms: ED Discharge - Pt. Copy, Patient Portal Self Enrollment Instructions: Urinary Tract Infections in Adults Diet: regular diet Activity: increase activity as tolerated Referrals: Kumar Calero MD [Primary Care Provider] - 1-2 Weeks Prescriptions: Amoxicillin & Pot Clavulanate [Augmentin Tab] 875 mg PO BID #14 tab Home Medications: Ambulatory Orders Lisinopril [Prinivil] 20 mg PO BID 05/13/12 Propafenone [Rythmol] 150 mg PO DAILY 05/13/12 Tramadol HCl [Ultram] 50 mg PO QID 04/15/16 Ondansetron HCl [Ondansetron] 4 mg PO BID PRN 01/24/18 Amoxicillin & Pot Clavulanate [Augmentin Tab] 875 mg PO BID #14 tab 07/27/18 Anastrozole [Arimidex] 1 mg PO DAILY 07/27/18 Clonazepam 0.5 mg PO TID 07/27/18 Dabigatran Etexilate Mesylate [Pradaxa] 150 mg PO BID 07/27/18 Digoxin [Digox] 125 mcg PO DAILY 07/27/18 Ibrance 100 mg PO DAILY 07/27/18 Metoprolol Succinate [Metoprolol Succinate ER] 50 mg PO BID 07/27/18 Additional Instructions: the patient is a 78-year-old female presenting with longer-term weakness and increased shortness of breath with exertion. Workup here has fail ed to show any other significant acute pathology other than a urinary tract infection. She'll be placed on Augmentin for this. She does seem to have significant deconditioning and may benefit from an aerobic exercise plan. She does have chronic pancytopenia. She does need to keep follow-up with her primary care doctor and her oncologist. Urine is being cultured. ER warnings were given.
[2018-07-27 19:04] VITALS: BP 167/65; TEMP 98.1; O2SAT 93
== END 2018-07-27 19:03 | disposition home or self-care (01) ==
LOC: ER 16:25
DX: N30.90 Cystitis, unspecified without hematuria (principal); D61.818 Other pancytopenia; R53.1 Weakness; C18.9 Malignant neoplasm of colon, unspecified; J44.9 Chronic obstructive pulmonary disease, unspecified; I48.91 Unspecified atrial fibrillation; I25.2 Old myocardial infarction; I50.9 Heart failure, unspecified; I11.0 Hypertensive heart disease with heart failure; K21.9 Gastro-esophageal reflux disease without esophagitis; Z86.73 Personal history of transient ischemic attack (TIA), and cerebral infarction without residual deficits; Z95.0 Presence of cardiac pacemaker; Z79.899 Other long term (current) drug therapy; Z88.5 Allergy status to narcotic agent; Z92.21 Personal history of antineoplastic chemotherapy

== ENCOUNTER → 2018-08-09 | Outpatient (CLI) | payer MEDICARE, OTHER | LOC: LAB.O 10:28 | PROVIDERS: ATTEND Internal Medicine Cardiovascular Disease | DX: I48.0 Paroxysmal atrial fibrillation (principal); C50.912 Malignant neoplasm of unspecified site of left female breast ==

== ENCOUNTER → 2018-08-25 | Outpatient (CLI) | payer MEDICARE, OTHER | LOC: YCHH 11:10 | PROVIDERS: ATTEND Family Medicine | DX: N39.0 Urinary tract infection, site not specified (principal) ==

== ENCOUNTER → 2018-08-31 | Outpatient (CLI) | payer MEDICARE, OTHER | LOC: YCHH 10:57 | PROVIDERS: ATTEND Internal Medicine Hematology & Oncology | DX: D64.9 Anemia, unspecified (principal) ==

== ENCOUNTER → 2018-09-11 | Outpatient (CLI) | payer MEDICARE, OTHER | LOC: YCHH 11:56 | PROVIDERS: ATTEND Internal Medicine Hematology & Oncology | DX: C50.912 Malignant neoplasm of unspecified site of left female breast (principal); N39.0 Urinary tract infection, site not specified ==

== ENCOUNTER → 2018-09-26 | Outpatient (CLI) | payer MEDICARE, OTHER | LOC: YCHH 12:45 | PROVIDERS: ATTEND Internal Medicine Hematology & Oncology | DX: C50.912 Malignant neoplasm of unspecified site of left female breast (principal); D64.9 Anemia, unspecified ==

== ENCOUNTER → 2018-10-02 | Outpatient (CLI) | payer MEDICARE, OTHER | LOC: YCHH 13:09 | PROVIDERS: ATTEND Internal Medicine Hematology & Oncology | DX: C50.912 Malignant neoplasm of unspecified site of left female breast (principal); Z85.038 Personal history of other malignant neoplasm of large intestine ==

== ENCOUNTER → 2018-10-24 | Outpatient (CLI) | payer MEDICARE, OTHER | LOC: YCHH 12:40 | PROVIDERS: ATTEND Family Medicine | DX: C50.912 Malignant neoplasm of unspecified site of left female breast (principal) ==

== ENCOUNTER → 2018-11-06 | Outpatient (CLI) | payer MEDICARE, OTHER | LOC: YCHH 16:07 | PROVIDERS: ATTEND Internal Medicine Hematology & Oncology | DX: C50.912 Malignant neoplasm of unspecified site of left female breast (principal) ==

== ENCOUNTER → 2018-11-14 | Outpatient (CLI) | payer MEDICARE, OTHER | LOC: YCHH 11:37 | PROVIDERS: ATTEND Family Medicine | DX: C50.912 Malignant neoplasm of unspecified site of left female breast (principal) ==

== ENCOUNTER → 2018-11-21 | Outpatient (CLI) | payer MEDICARE, OTHER | LOC: YCHH 16:23 | PROVIDERS: ATTEND Internal Medicine Hematology & Oncology | DX: C50.912 Malignant neoplasm of unspecified site of left female breast (principal) ==

== ENCOUNTER → 2018-11-28 | Outpatient (CLI) | payer MEDICARE, OTHER | LOC: YCHH 09:30 | PROVIDERS: ATTEND Internal Medicine Hematology & Oncology | DX: D64.9 Anemia, unspecified (principal); I50.9 Heart failure, unspecified; I25.810 Atherosclerosis of coronary artery bypass graft(s) without angina pectoris; C50.912 Malignant neoplasm of unspecified site of left female breast ==

== ENCOUNTER → 2018-12-05 | Outpatient (CLI) | payer MEDICARE, OTHER | LOC: YCHH 12:15 | PROVIDERS: ATTEND Family Medicine | DX: D64.9 Anemia, unspecified (principal); I50.9 Heart failure, unspecified; C50.912 Malignant neoplasm of unspecified site of left female breast; N39.0 Urinary tract infection, site not specified ==

== ENCOUNTER → 2018-12-12 | Outpatient (CLI) | payer MEDICARE, OTHER | LOC: YCHH 13:02 | PROVIDERS: ATTEND Family Medicine | DX: D64.9 Anemia, unspecified (principal); I50.9 Heart failure, unspecified; C50.912 Malignant neoplasm of unspecified site of left female breast ==

== ENCOUNTER → 2018-12-19 | Outpatient (CLI) | payer MEDICARE, OTHER | LOC: YCHH 10:59 | PROVIDERS: ATTEND Family Medicine | DX: C50.912 Malignant neoplasm of unspecified site of left female breast (principal); D64.9 Anemia, unspecified ==

== ENCOUNTER → 2018-12-26 | Outpatient (CLI) | payer MEDICARE, OTHER | LOC: YCHH 11:03 | PROVIDERS: ATTEND Family Medicine | DX: C50.912 Malignant neoplasm of unspecified site of left female breast (principal); D64.9 Anemia, unspecified; M18.9 Osteoarthritis of first carpometacarpal joint, unspecified ==

== ENCOUNTER → 2019-01-02 | Outpatient (CLI) | payer MEDICARE, OTHER | END | disposition home or self-care (01) | LOC: YCHH 10:52 | PROVIDERS: ATTEND Family Medicine | DX: D64.9 Anemia, unspecified (principal); C50.512 Malignant neoplasm of lower-outer quadrant of left female breast ==

== ENCOUNTER → 2019-01-09 | Outpatient (CLI) | payer MEDICARE, OTHER | LOC: YCHH 10:52 | PROVIDERS: ATTEND Family Medicine | DX: C50.912 Malignant neoplasm of unspecified site of left female breast (principal); D64.9 Anemia, unspecified ==

== ENCOUNTER → 2019-01-17 | Outpatient (CLI) | payer MEDICARE, OTHER | LOC: YCHH 10:51 | PROVIDERS: ATTEND Family Medicine | DX: C50.912 Malignant neoplasm of unspecified site of left female breast (principal); D64.9 Anemia, unspecified ==

== ENCOUNTER → 2019-01-23 | Outpatient (CLI) | payer MEDICARE, OTHER | LOC: YCHH 11:35 | PROVIDERS: ATTEND Family Medicine | DX: C50.912 Malignant neoplasm of unspecified site of left female breast (principal); D64.9 Anemia, unspecified; R30.0 Dysuria ==

== ENCOUNTER → 2019-01-29 | Outpatient (CLI) | payer MEDICARE, OTHER | LOC: YCHH 12:01 | PROVIDERS: ATTEND Family Medicine | DX: C50.912 Malignant neoplasm of unspecified site of left female breast (principal); D64.9 Anemia, unspecified ==

== ENCOUNTER → 2019-02-06 | Outpatient (CLI) | payer MEDICARE, OTHER | LOC: YCHH 09:55 | PROVIDERS: ATTEND Family Medicine | DX: D64.9 Anemia, unspecified (principal); R78.89 Finding of other specified substances, not normally found in blood ==

== ENCOUNTER → 2019-02-12 | Outpatient (CLI) | payer MEDICARE, OTHER | LOC: YCHH 12:11 | PROVIDERS: ATTEND Family Medicine | DX: N18.9 Chronic kidney disease, unspecified (principal); D64.9 Anemia, unspecified ==

== ENCOUNTER → 2019-02-20 | Outpatient (CLI) | payer MEDICARE, OTHER | LOC: YCHH 10:31 | PROVIDERS: ATTEND Family Medicine | DX: C50.912 Malignant neoplasm of unspecified site of left female breast (principal); D64.9 Anemia, unspecified ==

== ENCOUNTER → 2019-02-26 | Outpatient (CLI) | payer MEDICARE, OTHER | LOC: YCHH 11:53 | PROVIDERS: ATTEND Family Medicine | DX: C50.912 Malignant neoplasm of unspecified site of left female breast (principal); R30.0 Dysuria; D64.9 Anemia, unspecified ==

== ENCOUNTER → 2019-03-05 | Outpatient (CLI) | payer MEDICARE, OTHER | LOC: YCHH 11:29 | PROVIDERS: ATTEND Family Medicine | DX: C50.912 Malignant neoplasm of unspecified site of left female breast (principal); D64.9 Anemia, unspecified; R30.0 Dysuria ==

== ENCOUNTER → 2019-03-12 | Outpatient (CLI) | payer MEDICARE, OTHER | LOC: YCHH 11:59 | PROVIDERS: ATTEND Family Medicine | DX: C50.912 Malignant neoplasm of unspecified site of left female breast (principal); D64.9 Anemia, unspecified ==

== ENCOUNTER → 2019-03-15 | Outpatient (CLI) | payer MEDICARE, OTHER ==
--- NOTE | 2019-03-15 15:44 | CT ---
EXAM DESCRIPTION: Head w/wo Contrast CLINICAL HISTORY: MALIGNANT NEOPLASM OF BREAST COMPARISON: Previous CT brain without contrast April 11, 2018, earlier CT of the brain August 02, 2015 TECHNIQUE: CT brain is performed prior to and following IV administration of routine adult dose of nonionic iodinated IV contrast. FINDINGS: Ventricles and sulci are unremarkable on the precontrast images. There is no hemorrhage or mass. Low density areas in the white matter consistent with chronic microvascular ischemic disease with pattern unchanged from previous. Few lucencies in the calvarium are indeterminate. No definite expansile or destructive bone metastasis. Calvarial lucencies seen on today's study were present on previous exam in July 2015. Minimal fluid in the posterior right maxillary sinus. The other visualized paranasal sinuses and the mastoids and tympanic cavities are clear. After IV contrast, repeat axial CT imaging of the brain shows normal enhancement of intracranial vessels. No pathologic brain parenchymal enhancement. No enhancing intracranial mass. No enhancing intracranial metastasis. IMPRESSION: No acute intracranial pathologic process. This exam was performed according to our departmental dose-optimization program, which includes automated exposure control, adjustment of the mA and/or kV according to patient size and/or use of iterative reconstruction technique. Electronically signed by: Sundar Moreno MD 03/15/2019 3:43 PM [facility]
== END ==
LOC: CT 10:00
PROVIDERS: ATTEND Internal Medicine Hematology & Oncology
DX: C50.919 Malignant neoplasm of unspecified site of unspecified female breast (principal); R56.9 Unspecified convulsions

== ENCOUNTER → 2019-03-20 | Outpatient (CLI) | payer MEDICARE, OTHER | LOC: YCHH 10:18 | PROVIDERS: ATTEND Family Medicine | DX: C50.912 Malignant neoplasm of unspecified site of left female breast (principal); D64.9 Anemia, unspecified ==

== ENCOUNTER → 2019-03-26 | Outpatient (CLI) | payer MEDICARE, OTHER | LOC: YCHH 10:01 | PROVIDERS: ATTEND Family Medicine | DX: C50.912 Malignant neoplasm of unspecified site of left female breast (principal); D64.9 Anemia, unspecified ==

== ENCOUNTER → 2019-04-03 | Outpatient (CLI) | payer MEDICARE, OTHER | LOC: YCHH 10:18 | PROVIDERS: ATTEND Family Medicine | DX: R79.89 Other specified abnormal findings of blood chemistry (principal); D50.9 Iron deficiency anemia, unspecified ==

== ENCOUNTER → 2019-05-07 | Outpatient (CLI) | payer MEDICARE, OTHER | LOC: YCHH 12:10 | PROVIDERS: ATTEND Family Medicine | DX: R79.89 Other specified abnormal findings of blood chemistry (principal); D50.9 Iron deficiency anemia, unspecified ==

== ENCOUNTER 2019-05-14 11:42 | Outpatient (CLI) | payer MEDICARE, OTHER | END 2019-05-15 23:59 | LOC: YCHH 11:42 | PROVIDERS: ATTEND Family Medicine | DX: R79.89 Other specified abnormal findings of blood chemistry (principal); D64.9 Anemia, unspecified ==

== ENCOUNTER → 2019-05-29 | Outpatient (CLI) | payer MEDICARE, OTHER | LOC: YCHH 11:47 | PROVIDERS: ATTEND Family Medicine | DX: D50.8 Other iron deficiency anemias (principal); R79.89 Other specified abnormal findings of blood chemistry ==

== ENCOUNTER → 2019-05-30 | Outpatient (CLI) | payer MEDICARE, OTHER | LOC: YCFC.O 12:07 | PROVIDERS: ATTEND Family Medicine | DX: N39.0 Urinary tract infection, site not specified (principal) ==

== ENCOUNTER → 2019-06-04 | Outpatient (CLI) | payer MEDICARE, OTHER | LOC: YCHH 10:04 | PROVIDERS: ATTEND Family Medicine | DX: D64.9 Anemia, unspecified (principal); R79.89 Other specified abnormal findings of blood chemistry ==

== ENCOUNTER → 2019-06-11 | Outpatient (CLI) | payer MEDICARE, OTHER | LOC: YCHH 11:44 | PROVIDERS: ATTEND Family Medicine | DX: N18.9 Chronic kidney disease, unspecified (principal); D64.9 Anemia, unspecified ==

== ENCOUNTER → 2019-06-18 | Outpatient (CLI) | payer MEDICARE, OTHER | LOC: YCHH 11:02 | PROVIDERS: ATTEND Family Medicine | DX: D50.8 Other iron deficiency anemias (principal); R79.89 Other specified abnormal findings of blood chemistry ==

== ENCOUNTER → 2019-06-28 | Outpatient (CLI) | payer MEDICARE, OTHER | LOC: YCFC.O 10:40 | PROVIDERS: ATTEND Family Medicine | DX: N39.0 Urinary tract infection, site not specified (principal) ==

== ENCOUNTER → 2019-07-02 | Outpatient (CLI) | payer MEDICARE, OTHER | LOC: GMAB 11:57 | PROVIDERS: ATTEND Family Medicine | DX: D64.9 Anemia, unspecified (principal); R79.89 Other specified abnormal findings of blood chemistry ==

== ENCOUNTER → 2019-07-10 | Outpatient (CLI) | payer MEDICARE, OTHER | LOC: YCHH 11:52 | PROVIDERS: ATTEND Family Medicine | DX: D50.8 Other iron deficiency anemias (principal); R79.89 Other specified abnormal findings of blood chemistry; D64.9 Anemia, unspecified ==

== ENCOUNTER → 2019-07-16 | Outpatient (CLI) | payer MEDICARE, OTHER | LOC: YCHH 12:14 | PROVIDERS: ATTEND Family Medicine | DX: D64.9 Anemia, unspecified (principal); R79.89 Other specified abnormal findings of blood chemistry ==

== ENCOUNTER → 2019-07-24 | Outpatient (CLI) | payer MEDICARE, OTHER | LOC: YCHH 10:42 | PROVIDERS: ATTEND Family Medicine | DX: R78.89 Finding of other specified substances, not normally found in blood (principal); D50.8 Other iron deficiency anemias; D64.9 Anemia, unspecified ==

== ENCOUNTER → 2019-07-30 | Outpatient (CLI) | payer MEDICARE, OTHER | LOC: YCHH 13:57 | PROVIDERS: ATTEND Family Medicine | DX: D64.9 Anemia, unspecified (principal); R79.89 Other specified abnormal findings of blood chemistry ==

== ENCOUNTER → 2019-08-06 | Outpatient (CLI) | payer MEDICARE, OTHER | LOC: YCHH 12:23 | PROVIDERS: ATTEND Family Medicine | DX: R79.89 Other specified abnormal findings of blood chemistry (principal); D64.9 Anemia, unspecified ==

== ENCOUNTER → 2019-08-13 | Outpatient (CLI) | payer MEDICARE, OTHER | LOC: YCHH 13:13 | PROVIDERS: ATTEND Family Medicine | DX: D64.9 Anemia, unspecified (principal) ==

== ENCOUNTER → 2019-08-21 | Outpatient (CLI) | payer MEDICARE, OTHER | LOC: YCHH 10:23 | PROVIDERS: ATTEND Family Medicine | DX: R79.89 Other specified abnormal findings of blood chemistry (principal); D64.9 Anemia, unspecified ==

== ENCOUNTER → 2019-08-27 | Outpatient (CLI) | payer MEDICARE, OTHER | LOC: YCHH 11:01 | PROVIDERS: ATTEND Family Medicine | DX: R79.89 Other specified abnormal findings of blood chemistry (principal); D64.9 Anemia, unspecified ==

== ENCOUNTER → 2019-09-04 | Outpatient (CLI) | payer MEDICARE, OTHER | LOC: YCHH 11:52 | PROVIDERS: ATTEND Family Medicine | DX: R79.89 Other specified abnormal findings of blood chemistry (principal); D64.9 Anemia, unspecified ==

== ENCOUNTER → 2019-09-10 | Outpatient (CLI) | payer MEDICARE, OTHER | LOC: YCHH 12:04 | PROVIDERS: ATTEND Family Medicine | DX: R79.89 Other specified abnormal findings of blood chemistry (principal); D64.9 Anemia, unspecified ==

== ENCOUNTER → 2019-09-17 | Outpatient (CLI) | payer MEDICARE, OTHER | LOC: YCHH 11:00 | PROVIDERS: ATTEND Family Medicine | DX: R79.89 Other specified abnormal findings of blood chemistry (principal); D64.9 Anemia, unspecified ==

== ENCOUNTER → 2019-09-24 | Outpatient (CLI) | payer MEDICARE, OTHER | LOC: YCHH 12:13 | PROVIDERS: ATTEND Family Medicine | DX: D64.9 Anemia, unspecified (principal); R79.89 Other specified abnormal findings of blood chemistry ==

== ENCOUNTER → 2019-10-01 | Outpatient (CLI) | payer MEDICARE, OTHER | LOC: YCHH 11:35 | PROVIDERS: ATTEND Family Medicine | DX: R79.89 Other specified abnormal findings of blood chemistry (principal); D64.9 Anemia, unspecified ==

== ENCOUNTER → 2019-10-08 | Outpatient (CLI) | payer MEDICARE, OTHER | END | disposition home or self-care (01) | LOC: YCHH 10:07 | PROVIDERS: ATTEND Family Medicine | DX: R79.89 Other specified abnormal findings of blood chemistry (principal); C50.812 Malignant neoplasm of overlapping sites of left female breast; D64.9 Anemia, unspecified ==

== ENCOUNTER → 2019-10-23 | Outpatient (CLI) | payer MEDICARE, OTHER | LOC: YCHH 11:52 | PROVIDERS: ATTEND Family Medicine | DX: R79.89 Other specified abnormal findings of blood chemistry (principal); D64.9 Anemia, unspecified ==

== ENCOUNTER → 2019-10-29 | Outpatient (CLI) | payer MEDICARE, OTHER | LOC: YCHH 12:00 | PROVIDERS: ATTEND Family Medicine | DX: R79.89 Other specified abnormal findings of blood chemistry (principal); D64.9 Anemia, unspecified ==

== ENCOUNTER → 2019-11-06 | Outpatient (CLI) | payer MEDICARE, OTHER | LOC: YCHH 10:30 | PROVIDERS: ATTEND Family Medicine | DX: R79.89 Other specified abnormal findings of blood chemistry (principal); D64.9 Anemia, unspecified ==

== ENCOUNTER → 2019-11-12 | Outpatient (CLI) | payer MEDICARE, OTHER | LOC: YCHH 11:42 | PROVIDERS: ATTEND Family Medicine | DX: R79.89 Other specified abnormal findings of blood chemistry (principal); D64.9 Anemia, unspecified ==

== ENCOUNTER → 2019-11-13 | Outpatient (CLI) | payer MEDICARE, OTHER | LOC: YCFC.O 12:50 | PROVIDERS: ATTEND Family Medicine | DX: L02.01 Cutaneous abscess of face (principal) ==

== ENCOUNTER → 2019-11-19 | Outpatient (CLI) | payer MEDICARE, OTHER | LOC: YCHH 11:19 | PROVIDERS: ATTEND Family Medicine | DX: R79.89 Other specified abnormal findings of blood chemistry (principal); D64.9 Anemia, unspecified ==

== ENCOUNTER → 2019-11-26 | Outpatient (CLI) | payer MEDICARE, OTHER | LOC: YCHH 11:59 | PROVIDERS: ATTEND Family Medicine | DX: R79.89 Other specified abnormal findings of blood chemistry (principal); D64.9 Anemia, unspecified ==

== ENCOUNTER → 2019-12-03 | Outpatient (CLI) | payer MEDICARE, OTHER | LOC: YCHH 11:39 | PROVIDERS: ATTEND Family Medicine | DX: R79.89 Other specified abnormal findings of blood chemistry (principal); D64.9 Anemia, unspecified; R89.2 Abnormal level of other drugs, medicaments and biological substances in specimens from other organs, systems and tissues; I48.0 Paroxysmal atrial fibrillation; I71.2 Thoracic aortic aneurysm, without rupture; I10 Essential (primary) hypertension; I50.22 Chronic systolic (congestive) heart failure; Z51.81 Encounter for therapeutic drug level monitoring ==

== ENCOUNTER → 2019-12-10 | Outpatient (CLI) | payer MEDICARE, OTHER | LOC: YCHH 12:55 | PROVIDERS: ATTEND Family Medicine | DX: N18.9 Chronic kidney disease, unspecified (principal); D64.9 Anemia, unspecified ==

== ENCOUNTER → 2019-12-17 | Outpatient (CLI) | payer MEDICARE, OTHER | LOC: YCHH 11:08 | PROVIDERS: ATTEND Family Medicine | DX: R79.89 Other specified abnormal findings of blood chemistry (principal); D64.9 Anemia, unspecified; R30.0 Dysuria ==

== ENCOUNTER → 2019-12-24 | Outpatient (CLI) | payer MEDICARE, OTHER | LOC: YCHH 11:08 | PROVIDERS: ATTEND Family Medicine | DX: R79.89 Other specified abnormal findings of blood chemistry (principal); D64.9 Anemia, unspecified ==

== ENCOUNTER → 2019-12-31 | Outpatient (CLI) | payer MEDICARE, OTHER | LOC: YCHH 11:12 | PROVIDERS: ATTEND Family Medicine | DX: R79.89 Other specified abnormal findings of blood chemistry (principal); D64.9 Anemia, unspecified ==

== ENCOUNTER → 2020-01-07 | Outpatient (CLI) | payer MEDICARE, OTHER | LOC: YCHH 12:33 | PROVIDERS: ATTEND Family Medicine | DX: R79.89 Other specified abnormal findings of blood chemistry (principal); D64.9 Anemia, unspecified ==

== ENCOUNTER → 2020-01-14 | Outpatient (CLI) | payer MEDICARE, OTHER | LOC: YCHH 11:52 | PROVIDERS: ATTEND Family Medicine | DX: D64.9 Anemia, unspecified (principal); R79.89 Other specified abnormal findings of blood chemistry ==

== ENCOUNTER → 2020-01-21 | Outpatient (CLI) | payer MEDICARE, OTHER | LOC: YCHH 11:18 | PROVIDERS: ATTEND Family Medicine | DX: R79.89 Other specified abnormal findings of blood chemistry (principal); D64.9 Anemia, unspecified ==

== ENCOUNTER → 2020-01-28 | Outpatient (CLI) | payer MEDICARE, OTHER | LOC: YCHH 11:39 | PROVIDERS: ATTEND Family Medicine | DX: R79.89 Other specified abnormal findings of blood chemistry (principal); D64.9 Anemia, unspecified ==

== ENCOUNTER → 2020-02-06 | Outpatient (CLI) | payer MEDICARE, OTHER | LOC: YCHH 12:01 | PROVIDERS: ATTEND Family Medicine | DX: R79.89 Other specified abnormal findings of blood chemistry (principal); N39.0 Urinary tract infection, site not specified; D64.9 Anemia, unspecified ==

== ENCOUNTER → 2020-02-11 | Outpatient (CLI) | payer MEDICARE, OTHER | LOC: YCHH 11:46 | PROVIDERS: ATTEND Family Medicine | DX: R79.89 Other specified abnormal findings of blood chemistry (principal); D64.9 Anemia, unspecified ==

== ENCOUNTER → 2020-02-18 | Outpatient (CLI) | payer MEDICARE, OTHER | LOC: YCHH 10:56 | PROVIDERS: ATTEND Family Medicine | DX: D64.9 Anemia, unspecified (principal); R79.89 Other specified abnormal findings of blood chemistry ==

== ENCOUNTER → 2020-02-25 | Outpatient (CLI) | payer MEDICARE, OTHER | LOC: YCHH 11:22 | PROVIDERS: ATTEND Family Medicine | DX: D64.9 Anemia, unspecified (principal); R79.89 Other specified abnormal findings of blood chemistry ==

== ENCOUNTER → 2020-02-29 | Outpatient (CLI) | payer MEDICARE, OTHER | LOC: YCHH 11:44 | PROVIDERS: ATTEND Family Medicine | DX: N39.0 Urinary tract infection, site not specified (principal) ==

== ENCOUNTER → 2020-03-03 | Outpatient (CLI) | payer MEDICARE, OTHER | LOC: YCHH 12:02 | PROVIDERS: ATTEND Family Medicine | DX: D64.9 Anemia, unspecified (principal); R79.89 Other specified abnormal findings of blood chemistry ==

== ENCOUNTER → 2020-03-10 | Outpatient (CLI) | payer MEDICARE, OTHER | LOC: YCHH 11:36 | PROVIDERS: ATTEND Family Medicine | DX: R79.89 Other specified abnormal findings of blood chemistry (principal); R30.0 Dysuria; D64.9 Anemia, unspecified ==

== ENCOUNTER → 2020-03-17 | Outpatient (CLI) | payer MEDICARE, OTHER | LOC: YCHH 15:19 | PROVIDERS: ATTEND Family Medicine | DX: R79.89 Other specified abnormal findings of blood chemistry (principal); D64.9 Anemia, unspecified; N18.9 Chronic kidney disease, unspecified; R30.0 Dysuria ==

== ENCOUNTER → 2020-03-25 | Outpatient (CLI) | payer MEDICARE, OTHER | LOC: YCHH 12:49 | PROVIDERS: ATTEND Family Medicine | DX: C50.812 Malignant neoplasm of overlapping sites of left female breast (principal); C79.51 Secondary malignant neoplasm of bone; D50.8 Other iron deficiency anemias; C50.912 Malignant neoplasm of unspecified site of left female breast ==

== ENCOUNTER → 2020-03-31 | Outpatient (CLI) | payer MEDICARE, OTHER | LOC: YCHH 13:32 | PROVIDERS: ATTEND Family Medicine | DX: C50.812 Malignant neoplasm of overlapping sites of left female breast (principal); C79.51 Secondary malignant neoplasm of bone; D50.8 Other iron deficiency anemias ==

== ENCOUNTER → 2020-04-07 | Outpatient (CLI) | payer MEDICARE, OTHER | LOC: YCHH 11:40 | PROVIDERS: ATTEND Family Medicine | DX: C50.812 Malignant neoplasm of overlapping sites of left female breast (principal); C79.51 Secondary malignant neoplasm of bone; D50.8 Other iron deficiency anemias ==

== ENCOUNTER → 2020-04-14 | Outpatient (CLI) | payer MEDICARE, OTHER | LOC: YCHH 12:01 | PROVIDERS: ATTEND Family Medicine | DX: C50.812 Malignant neoplasm of overlapping sites of left female breast (principal); C79.51 Secondary malignant neoplasm of bone; N39.0 Urinary tract infection, site not specified; D50.8 Other iron deficiency anemias ==